=== PATIENT | female | born 1965 | race Two or more races ===

== ENCOUNTER 2022-04-11 12:49 | Emergency (ER) | payer SELFPAY ==
[~2022-04-11] VITALS: Ht 154.9 cm; Wt 84.7 kg
[2022-04-11 14:58] VITALS: BP 142/78
[2022-04-11] MEDS ORDERED: IBUP800T27 PO (16:02)
== END 2022-04-11 16:20 | disposition home or self-care (01) ==
LOC: ER 12:49
DX: S16.1XXA Strain of muscle, fascia and tendon at neck level, initial encounter (principal); S46.911A Strain of unspecified muscle, fascia and tendon at shoulder and upper arm level, right arm, initial encounter; S60.222A Contusion of left hand, initial encounter; S39.012A Strain of muscle, fascia and tendon of lower back, initial encounter; R51.9 Headache, unspecified; J45.909 Unspecified asthma, uncomplicated; E11.9 Type 2 diabetes mellitus without complications; W01.0XXA Fall on same level from slipping, tripping and stumbling without subsequent striking against object, initial encounter; Y93.89 Activity, other specified; Y92.89 Other specified places as the place of occurrence of the external cause; Y99.8 Other external cause status
CPT/HCPCS: 29125; 70450; 72040; 72100; 73030; 73110; 73130; 73562

== ENCOUNTER 2024-11-06 20:08 | Emergency (ER) | payer OTHER, SELFPAY ==
[~2024-11-06] VITALS: Ht 152.4 cm; Wt 77.2 kg
[~2024-11-06 20:08] MED LIST: IBUP-1456 PO
[2024-11-06 20:57] VITALS: BP 135/86; PULSE 114; RESP 22; O2SAT 94
[2024-11-06] MEDS: HYDROcodone-ACET 5/325MG TAB PO ONE (21:26)
[2024-11-06] MEDS: ONDANSETRON ODT 4 MG TAB PO ONE (21:26)
[2024-11-06] MEDS ORDERED: NAP500T PO (21:32)
--- NOTE | 2024-11-06 21:33 | ED.PDOC ---
Musculoskeletal HPI Comments 59-YEAR-OLD FEMALE PRESENTS TO ER WITH COMPLAINTS OF FALL INJURY X2 HOURS. PATIENT REPORTS THAT SHE TRIPPED WHILE WALKING AND LANDED ON HER KNEES ONTO ROCKS 2 HOURS PRIOR TO ARRIVAL TO ER AND HAS SINCE BEEN EXPERIENCING 10/10 BILATERAL KNEE PAIN WITH ABRASIONS TO RIGHT KNEE. DENIES HEAD INJURY/LOC. DENIES USE OF MEDICATIONS FOR CURRENT SYMPTOMS. PATIENT PRESENTS TO ER IN WHEELCHAIR, IN MILD DISTRESS. DENIES HIP PAIN, NUMBNESS/TINGLING, TIB-FIB PAIN, ANKLE/FOOT PAIN, HAND/WRIST PAIN OR ANY FURTHER SYMPTOMS/COMPLAINTS Chief Complaint: Fall Injury Time Seen by MD: 20:36 Primary Care Provider: UNKNOWN Reviewed Notes: Nurses Notes, Medications, Allergies Allergies: Coded Allergies: NO KNOWN ALLERGIES (Unverified , 04/11/22) Home Meds Active Scripts Naproxen (NAPROSYN TABLET) 500 Mg Tb, 1 TAB PO BID PRN, #30 TAB 0 Refills Prov:MATTHIAS DEWITT 11/06/24 Ibuprofen (Ibuprofen) 800 Mg Tab, 1 TAB PO TID PRN, #30 TAB 0 Refills Prov:MATTHIAS DEWITT 04/11/22 Information Source: Patient Mode of Arrival: Wheelchair Past Medical History PAST MEDICAL HISTORY: Asthma, DM Surgical History: Denies all surgeries SIGHT EFFECTS SPECIALIST History: No Pertinent SIGHT EFFECTS SPECIALIST History Family History Family History: Unknown Social History Smoker: Non-Smoker Alcohol: Denies ETOH Use Drugs: Denies Drug Use Lives In: Home Constitutional: denies: chills, diaphoresis, fatigue, fever, malaise, sweats, weakness, others EENTM: denies: blurred vision, double vision, ear bleeding, ear discharge, ear drainage, ear pain, ear ringing, eye pain, eye redness, hearing loss, mouth pain, mouth swelling, nasal discharge, nose bleeding, nose congestion, nose pain, photophobia, tearing, throat pain, throat swelling, voice changes, others Respiratory: denies: cough, hemoptysis, orthopnea, SOB at rest, shortness of breath, SOB with excertion, stridor, wheezing, others Cardiovascular: denies: chest pain, dizzy spells, diaphoresis, Dyspnea on exertion, edema, irregular heart beat, left arm pain, lightheadedness, palpitat ions, PND, syncope, others Gastrointestinal: denies: abdomen distended, abdominal pain, blood streaked bow els, constipated, diarrhea, dysphagia, difficulty swallowing, hematemesis, melena, nausea, poor appetite, poor fluid intake, rectal bleeding, rectal pain, vomiting, others Genitourinary: denies: abnormal vagina bleeding, burning, dyspareunia, dysuria, flank pain, frequency, hematuria, incontinence, pain, , vagina discharge, urgency, others Neurological: denies: dizziness, fainting, headache, left sided numbness, left sided weakness, numbness, paresthesia, pre-existing deficit, right sided numbness, right sided weakness, seizure, speech problems, tingling, tremors, weakness, others Musculoskeletal: reports: others ( STATED IN HPI) Integumetry: reports: others ( STATED IN HPI) Allergic/Immunocompromised: denies: Difficulty Healing, Frequent Infections, Hives, Itching, others Hematologic/Lymphatic: denies: anemia, blood clots, easy bleeding, easy bruising, swollen glands, others Endocrine: denies: excessive hunger, excessive sweating, excessive thirst, excessive urination, flushing, intolerance to cold, intolerance to heat, unexplained weight gain, unexplained weight loss, others Psychiatric: denies: anxiety, bipolar disorder, depression, hopeless, panic disorder, schizophrenia, sleepless, suicidal, others Physical Exam General Appearance: No Apparent Distress, Obese HEENT: PERRL/EOMI Neck: Full Range of Motion, Non-Tender, Normal Respiratory: Chest Non-Tender, Lungs Clear, No Accessory Muscle Use, No Respiratory Distress, Normal Breath Sounds Cardiovascular: No Murmur, No Gallop, Regular Rate/Rhythm Breast Exam: Deferred Gastrointestinal: NOT DONE Genitalia: Deferred Pelvic: Deferred Rectal: Deferred Extremities: Normal capillary refill, Normal range of motion Musculoskeletal : Extremity Location: Knee (TTP/MILD SWELLING NOTED TO BILATERAL ANTERIOR KNEES WITH MINIMAL ABRASIONS NOTED TO RIGHT ANTERIOR KNEE. NO DEFORMITY NOTED. NO OTHER TTP TO BILATERAL LOWER EXTREMITIES NOTED. GAIT SLOWED DUE TO PAIN LOCALIZED TO BILATERAL ANTERIOR KNEES. PULSES INTACT) Neurologic: Alert, police and fire dispatcher II-XII nml as Tested, No Motor Deficits, Normal Affect, Normal Mood, No Sensory Deficits Cerebellar Function: Normal Reflexes: Normal Skin: Dry, Warm Peripheral Pulses: 2+ Radial (R), 2+ Radial (L), 2+ Brachial (R), 2+ Brachial (L) Lymphatic: No Adenopathy Was a procedure done? Was a procedure done?: No Sedation Sedation?: No Differential Diagnosis EXT Differential Diagnosis: Fracture, Dislocation, Neurovascular injury X-Ray, Labs, Meds, VS Vital Signs Date Time Temp Pulse Resp B/P (MAP) Pulse Ox O2 Delivery O2 Flow Rate FiO2 11/06/24 20:57 99.1 114 22 135/86 (102) 94 Current Medications Medications (Trade) Dose Ordered Sig/[place] Route Start Time Stop Time Status Last Admin Acetaminophen/ Hydrocodone Bitart ([place] 5/325MG Tab) 1 tab ONCE ONCE PO 11/06/24 21:30 11/06/24 21:31 DC 11/06/24 21:26 Ondansetron HCl (Zofran Po) 4 mg ONCE ONCE PO 11/06/24 21:30 11/06/24 21:31 DC 11/06/24 21:26 PATIENT: PHU NIETOACCT: [id number]: [id number] : 1965 LOC: ER ROOM / BED: / AGE / SEX: 59 / F ADM STATUS: REG ER SERVICE 18 ORDERING PHYSICIAN: MATTHIAS DEWITT PROCEDURE(s): LKNE3 - L KNEE 3V XRAY REASON: LEFT KNEE PAIN ORDER NUMBER(s): [id number], ACCESSION NUMBER(s): [id number] EXAM: XY L KNEE 3V XRAY HISTORY: LEFT KNEE PAIN COMPARISON: L KNEE 3V XRAY on DOS: 04/11/22 TECHNIQUE: 3 views of the left knee were performed. FINDINGS: No acute fracture is identified about the left knee. No significant joint space narrowing. There is a small joint effusion IMPRESSION: 1. Small joint effusion. If more imaging is required I would recommend MRI exam ATED BY: EVERTON STRAUSS MD DICTATED DATE/TIME: 11/06/242150 SIGNED BY: EVERTON STRAUSS MD SIGNED DATE/TIME: 11/06/242150 CC: PATIENT: PHU NIETO ACCT: [id number] UNIT: [id number] : 1965 LOC: ER ROOM / BED: / AGE / SEX: 59 / F ADM STATUS: REG ER SERVICE 18 ORDERING PHYSICIAN: MATTHIAS DEWITT PROCEDURE(s): RKN3 - R KNEE 3V XRAY REASON: RIGHT KNEE PAIN ORDER NUMBER(s): [id number], ACCESSION NUMBER(s): [id number] EXAM: XY R KNEE 3V XRAY HISTORY: RIGHT KNEE PAIN COMPARISON: L KNEE 3V XRAY on DOS: 04/11/22 TECHNIQUE: 3 views of the right knee were performed. FINDINGS: No acute fracture is identified about the right knee. No significant joint space narrowing. No evidence of significant joint effusion. IMPRESSION: Unremarkable radiographs of the right knee. ATED BY: GRACIE HANSON DO DICTATED DATE/TIME: 11/06/242153 SIGNED BY: GRACIE HANSON DO SIGNED DATE/TIME: 11/06/242153 CC: BILATERAL KNEE X-RAYS REVIEWED NORCO 5/325 MG P.O. ORDERED ZOFRAN 4 MG P.O. ORDERED PREVIOUS CHART VISIT REVIEWED PATIENT NEUROVASCULARLY INTACT AND REPORTED IMPROVEMENT IN SYMPTOMS PRIOR TO DISCHARGE JACINTA WRAP APPLIED CRUTCHES ORDERED, PATIENT EDUCATED ON PROPER USE. WAS ADVISED ON USE AT ALL TIMES ADVISED ON REST/NO STRENUOUS ACTIVITY, ELEVATION AND ALTERNATE ICE ON/OFF NEEDED FOR PAIN/SWELLING ADVISED TO FOLLOW UP WITH PCP AND ORTHOPEDICS IN 1-2 DAYS PATIENT VERBALIZED UNDERSTANDING AND AGREEABLE WITH CURRENT PLAN OF CARE ADVISED TO RETURN TO ER IMMEDIATELY IF SYMPTOMS WORSEN Images Reviewed?: Images reviewed and evaluated by me Time of 1ST Reevaluation: 21:22 Reevaluation 1ST: N/A Patient Education/Counseling: Diagnosis, Treatment, Prognosis, Need For Follow Up Family Education/Counseling: No Family Present Departure 1 Departure Time of Disposition: 22:02 Impression: Primary Impression: Effusion of knee joint, left Additional Impression: Abrasion of knee, right Qualified Codes: S80.211A - Abrasion, right knee, initial encounter Disposition: HOME / SELF CARE / HOMELESS Condition: Stable e-Prescriptions Naproxen (NAPROSYN TABLET) 500 Mg Tb 1 TAB PO BID PRN, #30 TAB 0 Refills Prov: MATTHIAS DEWITT 11/06/24 Discharged With: Friend Critical Care Note Critical Care Time?: No Stability Stability form required: No Heart Score Heart Score: Heart Score Response (Comments) Value History N/A 0 EKG N/A 0 Age N/A 0 Risk Factors N/A 0 Troponin N/A 0 Total 0 MATTHIAS DEWITT Nov 06, 2024 21:33
--- NOTE | 2024-11-06 21:53 | DVH ---
EXAM: XY L KNEE 3V XRAY HISTORY: LEFT KNEE PAIN COMPARISON: L KNEE 3V XRAY on DOS: 04/11/22 TECHNIQUE: 3 views of the left knee were performed. FINDINGS: No acute fracture is identified about the left knee. No significant joint space narrowing. There is a small joint effusion IMPRESSION: 1. Small joint effusion. If more imaging is required I would recommend MRI exam
--- NOTE | 2024-11-06 21:57 | DVH ---
EXAM: XY R KNEE 3V XRAY HISTORY: RIGHT KNEE PAIN COMPARISON: L KNEE 3V XRAY on DOS: 04/11/22 TECHNIQUE: 3 views of the right knee were performed. FINDINGS: No acute fracture is identified about the right knee. No significant joint space narrowing. No evid ence of significant joint effusion. IMPRESSION: Unremarkable radiographs of the right knee.
== END 2024-11-06 22:19 | disposition home or self-care (01) ==
LOC: ER 20:08
DX: S80.211A Abrasion, right knee, initial encounter (principal); M25.462 Effusion, left knee; J45.909 Unspecified asthma, uncomplicated; E11.9 Type 2 diabetes mellitus without complications; W19.XXXA Unspecified fall, initial encounter; Y93.89 Activity, other specified; Y92.89 Other specified places as the place of occurrence of the external cause; Y99.8 Other external cause status
CPT/HCPCS: 73562; 99284; Q0162